=== PATIENT | male | born 1955 | race Caucasian/White ===

== ENCOUNTER 2017-09-06 08:58 | Inpatient (IN) | payer BC, OTHER ==
[~2017-09-06] VITALS: Ht 172.7 cm; Wt 92.6 kg
[~2017-09-06 08:58] MED LIST: BACITRACIN 50,000 UNIT ONE; BUPIVACAINE/PF-EPI 0.5% 1:200K ONE; THROMBIN 5,000 UNIT VIAL TP ONE; VANCOMYCIN 1,000 MG ONE
[2017-09-06] MEDS ORDERED: FENTANYL PF 250 MCG/5ML ONE ×2 (09:45→11:28)
[2017-09-06] MEDS ORDERED: MIDAZOLAM 1 MG/ML, 2ML ONE (09:45)
[2017-09-06] MEDS ORDERED: ROCURONIUM 10MG/ML,5ML ONE (09:46)
[2017-09-06] MEDS ORDERED: PROPOFOL 10 MG/ML, 20ML ONE (09:46)
[2017-09-06] MEDS ORDERED: SUCCINYLCHOLINE 20 MG/ML, 10ML ONE (09:47)
[2017-09-06] MEDS ORDERED: WATER-INJECTION,STERILE 10 ML IV ONE (09:47)
[2017-09-06] MEDS ORDERED: CEFAZOLIN 1,000 MG ONE ×2 (09:48)
[2017-09-06] MEDS ORDERED: PROPOFOL 50 ML ONE ×3 (09:49→12:53)
[2017-09-06] MEDS ORDERED: LACTATED RINGERS 1,000 ML IV SCH (10:07)
[2017-09-06] MEDS ORDERED: AZIL80TA PO (10:10)
[2017-09-06] MEDS ORDERED: CHLO25TA PO (10:10)
[2017-09-06] MEDS ORDERED: MELO15TA24 PO (10:10)
[2017-09-06 10:28] VITALS: BP 115/77
[2017-09-06] MEDS ORDERED: PHENYLEPHRINE 10 MG/ML ONE (11:13)
[2017-09-06] MEDS ORDERED: MEPERIDINE/PF 25MG/0.5ML IVPush PRN (11:30)
[2017-09-06] MEDS ORDERED: ACETAMINOPHEN 325 MG TABLET PO PRN (11:30)
[2017-09-06] MEDS ORDERED: OXYcodone 5 MG/5 ML ORAL.SOL UDC PO PRN (11:30)
[2017-09-06] MEDS ORDERED: DIAZEPAM 5 MG/ML, 2ML IVPush PRN (11:30)
[2017-09-06] MEDS ORDERED: LABETALOL 5MG/ML, 20ML IV PRN (11:30)
[2017-09-06] MEDS ORDERED: PROMETHAZINE 25 MG SUPP PR PRN (11:30)
[2017-09-06] MEDS ORDERED: ONDANSETRON 2MG/ML, 2ML IVPush PRN (11:30)
[2017-09-06] MEDS ORDERED: MORPHINE SULFATE 4 MG/ML, 1ML IVPush PRN (11:30)
[2017-09-06] MEDS ORDERED: PROMETHAZINE 25 MG/ML, 1ML IV PRN (11:30)
[2017-09-06] MEDS ORDERED: HYDROmorphone 1 MG/ML, 1ML IV PRN (11:30)
[2017-09-06] MEDS ORDERED: PROMETHAZINE 12.5 MG SUPP PR PRN (11:30)
[2017-09-06] MEDS ORDERED: ONDANSETRON 0.8 MG/ML ORAL SOL PO PRN (11:30)
[2017-09-06] MEDS ORDERED: hydrALAzine 20 MG/ML, 1ML IV PRN (11:30)
[2017-09-06] MEDS ORDERED: FENTANYL PF 100 MCG/2ML ONE (14:24)
[2017-09-06] MEDS ORDERED: OXYcodone 5 MG/5 ML ORAL.SOL UDC ONE (14:25)
[2017-09-06] MEDS: FENTANYL PF 100 MCG/2ML IV PRN ×2 (14:28→14:47)
[2017-09-06] MEDS ORDERED: MAGNESIUM HYDROXIDE 8%, 30ML UDC PO PRN (16:00)
[2017-09-06] MEDS ORDERED: HYDROcodone/APAP 10/325 MG TABLET PO PRN (16:00)
[2017-09-06] MEDS ORDERED: DIAZEPAM 5 MG/ML, 2ML IV PRN (16:00)
[2017-09-06] MEDS ORDERED: DIPHENHYDRAMINE 50 MG/ML, 1ML IVPush PRN (16:00)
[2017-09-06] MEDS ORDERED: morphine SULFATE 10 MG/ML, 1ML IV PRN (16:00)
[2017-09-06] MEDS ORDERED: MEPERIDINE/PF 100 MG/ML IM PRN (16:00)
[2017-09-06] MEDS ORDERED: DIPHENHYDRAMINE 25 MG CAPSULE PO PRN (16:00)
[2017-09-06] MEDS ORDERED: BISACODYL 10 MG SUPP PR PRN (16:00)
[2017-09-06] MEDS ORDERED: ONDANSETRON 2MG/ML, 2ML IV PRN (16:00)
[2017-09-06] MEDS ORDERED: DIAZEPAM 5 MG TABLET PO PRN (16:00)
[2017-09-06] MEDS: CEFAZOLIN PMX 1GM/50ML 50 ML IVPB SCH (16:54)
[2017-09-06] MEDS: NS + 20MEQ KCL 1,000 ML IV SCH (16:54)
[2017-09-06] MEDS: TIZANIDINE 4MG TABLET PO SCH (16:55)
[2017-09-06 19:06] VITALS: BP 104/67
[2017-09-07 00:15] VITALS: BP 99/62
[2017-09-07] MEDS: TIZANIDINE 4MG TABLET PO SCH ×3 (00:56→16:41)
[2017-09-07] MEDS: CEFAZOLIN PMX 1GM/50ML 50 ML IVPB SCH (00:56)
[2017-09-07] MEDS: NS + 20MEQ KCL 1,000 ML IV SCH ×3 (03:43→23:00)
[2017-09-07 04:21] VITALS: BP 94/61
[2017-09-07 05:00] LABS: BASOPHILS # (AUTO) 0.07 x10^3/uL (0-0.1); BASOPHILS % (AUTO) 1 % (0-1); EOSINOPHILS # (AUTO) 0.01 x10^3/uL (0-0.4); EOSINOPHILS % (AUTO) 0 % (1-7); LYMPHOCYTES % (AUTO) 13 % (22-44); MD NO; MEAN CORPUSCULAR HEMOGLOBIN 30.1 pg (27.5-34.5); MEAN CORPUSCULAR HGB CONC 34.1 g/dL (33.2-36.2); MEAN CORPUSCULAR VOLUME 88.5 fL (81-97); MEAN PLATELET VOLUME 7.8 fL (7.4-10.4); MONOCYTES # (AUTO) 0.67 x10^3/uL (0.2-0.8); MONOCYTES % (AUTO) 8 % (2-9); NEUTROPHILS # (AUTO) 6.63 x10^3/uL (1.8-6.8); NEUTROPHILS % (AUTO) 78 % (42-75); PLATELET COUNT 227 x10^3/uL (130-400); RED CELL DISTRIBUTION WIDTH 13.3 % (9.4-14.8)
[2017-09-07 05:12] LABS: ANION GAP 7 mmol/L (5-15); CHLORIDE 104 mmol/L (98-107); CREATININE 0.92 mg/dL (0.7-1.3)
[2017-09-07] MEDS ORDERED: ONDANSETRON ODT 4 MG ONE (07:44)
[2017-09-07] MEDS: CHLORTHALIDONE 25 MG TABLET PO SCH (07:48)
[2017-09-07] MEDS: SENNA/DOCUSATE TABLET PO SCH (07:51)
[2017-09-07] MEDS: ONDANSETRON ODT 4 MG PO PRN (07:51)
[2017-09-07 08:04] VITALS: BP 97/62
[2017-09-07 15:40] VITALS: BP 143/90
[2017-09-07] MEDS: OXYcodone/APAP 10/325MG TABLET PO PRN ×2 (16:41→20:52)
[2017-09-07 20:34] VITALS: BP 92/55
[2017-09-08] MEDS ORDERED: PROMETHAZINE 25 MG/ML, 1ML IM PRN
[2017-09-08] MEDS: OXYcodone/APAP 10/325MG TABLET PO PRN ×2 (01:16→05:12)
[2017-09-08] MEDS: TIZANIDINE 4MG TABLET PO SCH ×2 (01:16→08:38)
[2017-09-08 03:39] VITALS: BP 94/57
[2017-09-08 05:00] LABS: BASOPHILS # (AUTO) 0.03 x10^3/uL (0-0.1); BASOPHILS % (AUTO) 0 % (0-1); EOSINOPHILS # (AUTO) 0.06 x10^3/uL (0-0.4); EOSINOPHILS % (AUTO) 1 % (1-7); LYMPHOCYTES # (AUTO) 1.12 x10^3/uL (1-3.4); LYMPHOCYTES % (AUTO) 14 % (22-44); MD NO; MEAN CORPUSCULAR HEMOGLOBIN 30.6 pg (27.5-34.5); MEAN CORPUSCULAR HGB CONC 34.4 g/dL (33.2-36.2); MEAN CORPUSCULAR VOLUME 88.9 fL (81-97); MEAN PLATELET VOLUME 7.9 fL (7.4-10.4); MONOCYTES # (AUTO) 0.74 x10^3/uL (0.2-0.8); MONOCYTES % (AUTO) 9 % (2-9); NEUTROPHILS # (AUTO) 6.33 x10^3/uL (1.8-6.8); NEUTROPHILS % (AUTO) 77 % (42-75); PLATELET COUNT 186 x10^3/uL (130-400); RED BLOOD COUNT 3.32 x10^6/uL (4.38-5.82); RED CELL DISTRIBUTION WIDTH 12.8 % (9.4-14.8)
[2017-09-08 05:21] LABS: ANION GAP 7 mmol/L (5-15); CHLORIDE 100 mmol/L (98-107); CREATININE 1.04 mg/dL (0.7-1.3)
[2017-09-08] MEDS: NS + 20MEQ KCL 1,000 ML IV SCH (08:26)
[2017-09-08] MEDS ORDERED: OXYC1TAB9 PO (08:30)
[2017-09-08] MEDS ORDERED: TIZA4TAB PO (08:30)
[2017-09-08 08:36] VITALS: BP 101/66
[2017-09-08] MEDS: CHLORTHALIDONE 25 MG TABLET PO SCH (08:37)
[2017-09-08] MEDS: ONDANSETRON ODT 4 MG PO PRN (08:38)
[2017-09-08] MEDS: SENNA/DOCUSATE TABLET PO SCH (08:38)
== END 2017-09-08 09:30 | disposition home or self-care (01) | DRG 460 ==
LOC: ORIP 08:58 → 4NOR 15:39 → DCLOUNGE 09-08 09:20
PROVIDERS: ADMIT Neurological Surgery; ATTEND Neurological Surgery
PROC: 01NB0ZZ Release Lumbar Nerve, Open Approach (ICD-10-PCS; 2017-09-06)
PROC: 0SG00AJ Fusion of Lumbar Vertebral Joint with Interbody Fusion Device, Posterior Approach, Anterior Column, Open Approach (ICD-10-PCS; principal; 2017-09-06 12:00)
DX: M47.26 Other spondylosis with radiculopathy, lumbar region (principal); M48.061 Spinal stenosis, lumbar region without neurogenic claudication
CPT/HCPCS: 36415; 72100; 80048; 85025; 95938; 95941; C1713; C1776; J0690; J2250; J2270; J2704; J3010; J3370; J3480; Q0162; J0330; J1200; J2370; J7120; Q0163